=== PATIENT | male | born 1955 | race African-American/Black ===

== ENCOUNTER 2022-08-15 21:23 | Emergency (ER) | payer MEDICARE ==
[~2022-08-15] VITALS: Ht 185.4 cm; Wt 96.0 kg
[2022-08-15 21:25] VITALS: BP 152/100
[2022-08-15 22:29] LABS: CLARITY URINE CLEAR (CLEAR); COLOR URINE YELLOW (YELLOW); KETONES URINE NEGATIVE (NEGATIVE); LEUKOCYTE ESTERASE URINE NEGATIVE (NEGATIVE); NITRITE URINE NEGATIVE (NEGATIVE); OCCULT BLOOD URINE 2+ (NEGATIVE); PROTEIN URINE NEGATIVE (NEGATIVE); UROBILINOGEN URINE 0.2 E.U./dL (0.2-1.0)
[2022-08-15 22:47] LABS: CHLORIDE 105 mEq/L (98-107)
== END 2022-08-16 00:05 | disposition home or self-care (01) ==
LOC: ER 21:23
DX: N40.1 Benign prostatic hyperplasia with lower urinary tract symptoms (principal); R33.8 Other retention of urine; N17.9 Acute kidney failure, unspecified; R31.0 Gross hematuria; I10 Essential (primary) hypertension
CPT/HCPCS: 36415; 51702; 80053; 81003; 99283; 99284; A4315

== ENCOUNTER 2022-08-21 21:06 | Emergency (ER) | payer MEDICARE, MEDICAID ==
[~2022-08-21] VITALS: Ht 185.4 cm; Wt 96.0 kg
[2022-08-21 21:24] VITALS: BP 155/93
[2022-08-22 00:58] LABS: BASOPHILS % 0.4 % (0.0-2.0); EOSINOPHILS % 2.6 % (0.0-5.0); HEMATOCRIT. 47.7 % (42.0-52.0); HEMOGLOBIN. 16.3 g/dL (14.0-18.0); LYMPHOCYTES % 25.8 % (20.0-50.0); MEAN PLATELET VOLUME 8.9 fl (7.4-10.4); MONOCYTES % 7.7 % (2.0-8.0); NEUTROPHILS % 63.5 % (40.0-76.0); PLATELET 189 x1000/uL (130-400); RED BLOOD CELL COUNT 5.81 mill/uL (4.7-6.1); RED CELL DISTRIBUTION WIDTH 14.5 % (11.6-14.6)
[2022-08-22 01:03] LABS: CHLORIDE 104 mEq/L (98-107)
== END 2022-08-22 01:40 | disposition home or self-care (01) ==
LOC: ER 21:06
DX: T83.098A Other mechanical complication of other urinary catheter, initial encounter (principal); X58.XXXA Exposure to other specified factors, initial encounter; R31.9 Hematuria, unspecified; E78.00 Pure hypercholesterolemia, unspecified; I10 Essential (primary) hypertension
CPT/HCPCS: 36415; 80053; 85025; 99283

== ENCOUNTER 2022-09-14 12:49 | Emergency (ER) | payer MEDICARE, MEDICAID ==
[~2022-09-14] VITALS: Ht 185.4 cm; Wt 93.0 kg
[2022-09-14 13:00] VITALS: BP 131/77
== END 2022-09-14 17:14 | disposition home or self-care (01) ==
LOC: ER 13:09
DX: R33.9 Retention of urine, unspecified (principal); I10 Essential (primary) hypertension; E78.00 Pure hypercholesterolemia, unspecified; Z98.890 Other specified postprocedural states; Z88.1 Allergy status to other antibiotic agents
CPT/HCPCS: 51702; 99284